=== PATIENT | male | born 1965 | race Caucasian/White ===

== ENCOUNTER 2016-06-03 12:15 | Emergency (ER) | payer OTHER ==
[2016-06-03 12:22] VITALS: BP 144/88; PULSE 66; TEMP 97.5; BMI 25.7
--- NOTE | 2016-06-03 13:27 | PDOC ---
History of Present Illness - General Chief Complaint: Wound Stated Complaint: RT FOOT INJURY Time Seen by Provider: 06/03/16 12:45 History Source: Patient - History of Present Illness Timing/Duration: reports: other Location: reports: extremities Associated Symptoms: reports: other (leg wound). denies: fever Past History - Past Medical History Allergies/Adverse Reactions: Allergies Allergy/AdvReac Type Severity Reaction Status Date / Time No Known Allergies Allergy Verified 06/03/16 12:19 Home Medications: Ambulatory Orders Hydrochlorothiazide 25 mg PO DAILY #14 tablet 11/06/15 HTN: Yes - Surgical History Cardiac Surgery: Yes (DIAG.CARD CATH NO STENT) - Psycho/Social/Smoking Cessation Hx Anxiety: No Suicidal Ideation: No Smoking Status: Yes Smoking History: Never smoked Have you smoked in the past 12 months: No Number of Cigarettes Smoked Daily: 0 Information on smoking cessation initiated: No Hx Alcohol Use: No Drug/Substance Use Hx: No Substance Use Type: None Review of Systems - Review of Systems Constitutional: No: Chills, Fever Integumentary: Yes: Pruritus, Other (wound) *Physical Exam - Vital Signs Last Vital Signs Temp Pulse Resp BP Pulse Ox 97.5 F L 66 18 144/88 100 06/03/16 12:19 06/03/16 12:19 06/03/16 12:19 06/03/16 12:19 06/03/16 12:19 - Physical Exam General Appearance: Yes: Appropriately Dressed. No: Apparent Distress HEENT: positive: Normal Voice Neck: positive: Supple Respiratory/Chest: negative: Respiratory Distress Integumentary: positive: Dry, Warm, Other (~1cm circular wound to lateral L leg w/ minimal ttp, no erythema or drainage) Neurologic: positive: Fully Oriented, Alert, Normal Mood/Affect Medical Decision Making - Medical Decision Making 06/03/16 13:24 51 yo male, h/o HTN, here for evaluation of wound to L leg. Pt reports that wound first appeared 3 months ago and that he went to the ED and told that he did not have an infection and that wound would eventually heal. Pt states wound did heal but it took a very long time. States 3 days ago, wound reappeared w/ some clear drainage and now painful. No f/c. Pt well vilma and stable w/ ~1cm circular wound to lateral L leg without surrounding erythema or discharge. No e/ o infection at this time and pedal pulses intact. Pt instructed to apply bacitracin and keep wound covered. Given vascular for evaluation of poor wound healing *DC/Admit/Observation/Transfer Diagnosis at time of Disposition: Wound healing, delayed - Discharge Dispostion Disposition: HOME Condition at time of disposition: Good - Referrals Referrals: Rashaad Jiang MD [Staff Physician] - - Patient Instructions Additional Instructions: Por favor, siga con el Dr. Jiang de vascular para helen evaluacin ms
== END 2016-06-03 13:25 | disposition home or self-care (01) ==
LOC: JERFT 12:15
DX: S81.802A Unspecified open wound, left lower leg, initial encounter (principal); X58.XXXA Exposure to other specified factors, initial encounter; Y93.89 Activity, other specified; Y92.89 Other specified places as the place of occurrence of the external cause
CPT/HCPCS: 99281-25

== ENCOUNTER 2021-05-04 09:37 | Emergency (ER) | payer OTHER ==
[2021-05-04 09:51] VITALS: BP 148/98; PULSE 74; TEMP 98.2; BMI 30.1
[2021-05-04 10:55] LABS: BASO % 0.7 % (0-2.0); EOS % 1.7 % (0-4.5); HEMATOCRIT 46.4 % (35.4-49); HEMOGLOBIN 16.2 GM/dL (11.7-16.9); LYMPH % 23.5 % (8-40); MCH 31.4 pg (25.7-33.7); MCHC 34.8 g/dl (32.0-35.9); MEAN CELL VOLUME 90.3 fl (80-96); MEAN PLT VOLUME 7.9 fl (7.5-11.1); MONO % 4.8 % (3.8-10.2); NEUT % 69.3 % (42.8-82.8); PLATELET COUNT 254 10^3/uL (134-434); RBC 5.14 M/mm3 (4.00-5.60); RDW 13.4 % (11.9-15.9); WHITE BLOOD COUNT 6.6 K/mm3 (4.0-10.0)
[2021-05-04 11:19] LABS: BLOOD UREA NITROGEN 15.6 mg/dL (7-18); CALCIUM 8.9 mg/dL (8.5-10.1)
[2021-05-04 11:23] LABS: CREATININE 1.1 mg/dL (0.55-1.3)
== END 2021-05-04 12:30 | disposition home or self-care (01) ==
LOC: JER 09:37
DX: K11.20 Sialoadenitis, unspecified (principal)
CPT/HCPCS: 36415; 70492-TC; 80048; 85025; 86735; 99284-25; Q9967

== ENCOUNTER 2024-10-05 17:11 | Emergency (ER) | payer OTHER ==
[2024-10-05 17:29] VITALS: BP 151/104; PULSE 77; RESP 16; TEMP 98; BMI 27.5
== END 2024-10-05 19:19 | disposition home or self-care (01) ==
LOC: JER 17:11
DX: I10 Essential (primary) hypertension (principal)
CPT/HCPCS: 99283-25